=== PATIENT | female | born 1975 | race Asian ===

== ENCOUNTER 2024-01-13 08:48 | Emergency (ER) | payer OTHER ==
[~2024-01-13] VITALS: Ht 154.9 cm; Wt 52.2 kg
[2024-01-13 09:07] VITALS: BP_SYST 142; PULSE 85; RESP 18; TEMP 98.3; O2SAT 98
[2024-01-13] MEDS ORDERED: TRAM50TA2 PO (09:52)
[2024-01-13] MEDS ORDERED: METH-634 PO (09:52)
[2024-01-13] MEDS: KETOROLAC TROMETHAMINE 30 MG VIAL IM ONE (09:55)
[2024-01-13 10:10] VITALS: BP_SYST 140; PULSE 88; RESP 19; TEMP 98.3; O2SAT 98
== END 2024-01-13 10:11 | disposition home or self-care (01) ==
LOC: SED 08:48
DX: S46.812A Strain of other muscles, fascia and tendons at shoulder and upper arm level, left arm, initial encounter (principal); X58.XXXA Exposure to other specified factors, initial encounter; Y93.89 Activity, other specified; Y92.89 Other specified places as the place of occurrence of the external cause; Y99.8 Other external cause status
CPT/HCPCS: 99283; 96372; J1885